=== PATIENT | female | born 1970 ===

== ENCOUNTER 2024-11-23 04:45 | Day surgery (SDC) | payer OTHER ==
[2024-11-19 10:03] VITALS: BP 102/67
[~2024-11-23] VITALS: Ht 160 cm; Wt 56.7 kg
[2024-11-23] MEDS ORDERED: METHYLPREDNISOLONE ACETATE 80 MG/ML VIAL IM ONE (07:45)
[2024-11-23] MEDS ORDERED: CEFAZOLIN SODIUM 1,000 MG VIAL IV ONE ×2 (07:45→08:00)
[2024-11-23] MEDS ORDERED: DUI500 PO (07:53)
[2024-11-23] MEDS ORDERED: ACETAMINOPHEN-1 EAC2 PO (07:53)
[2024-11-23] MEDS ORDERED: PROMETHAZINE HCL 25 MG/ML AMPUL IM PRN (08:00)
[2024-11-23] MEDS ORDERED: MEPERIDINE HCL/PF 25 MG/ML VIAL IM PRN (08:00)
[2024-11-23] MEDS ORDERED: ACETAMINOPHEN WITH CODEINE 1 UDTAB TABLET PO PRN (08:00)
[2024-11-23] MEDS ORDERED: MORPHINE SULFATE 4 MG/ML VIAL IV ONE ×2 (08:05→08:35)
[2024-11-23] MEDS ORDERED: CEFADROXIL 500 MG CAPSULE PO SCH (09:00)
== END 2024-11-23 10:55 | disposition home or self-care (01) ==
LOC: CIR.AMB 04:45
PROVIDERS: ATTEND Orthopaedic Surgery Sports Medicine
DX: M75.02 Adhesive capsulitis of left shoulder (principal); Z88.6 Allergy status to analgesic agent; H52.209 Unspecified astigmatism, unspecified eye